=== PATIENT | female | born 1945 | race Caucasian/White ===

== ENCOUNTER 2020-07-18 06:57 | Emergency (ER) | payer OTHER ==
[~2020-07-18] VITALS: Ht 165.1 cm; Wt 58.1 kg
[2020-07-18] MEDS ORDERED: KETOROLAC TROMETHAMINE 30 MG/ML VIAL IV STA (07:03)
[2020-07-18] MEDS ORDERED: ONDANSETRON HCL INJ 2MG/ML 2ML 2 MG/ML VIAL IV STA (07:03)
[2020-07-18] MEDS ORDERED: PIPERACILLIN/TAZO 4.5 GM 100 ML IV STA (07:03)
[2020-07-18] MEDS ORDERED: SODIUM CHLORIDE 0.9% 1000ML 1,000 ML IV STA (07:03)
--- NOTE | 2020-07-18 07:03 | Emergency Department Note ---
History of Present Illnes History of Present Illness History of Present Illness This is a 74 year old female presents to the ED for 5 day h/o of TRUJILLO with n/v. Denies cough, myalgias, and abd pain. Seen at bedside non-toxic appearing. Onset (how long ago): day(s) (5) Severity: moderate Onset quality: gradual Duration (how long): day(s) (5) Timing of current episode: constant Progression: worsening Chronicity: new Context: Denies recent illness, Denies recent surgery, Denies recent immobilization, Denies recent travel, Denies trauma/injury, Denies new medications, Denies hx of DVT/PE, Denies non-compliance w/ medications, Denies other Relieving factors: none Exacerbating factors: none Associated symptoms: Reports fever/chills, Reports headaches Treatments prior to arrival: none Past Medical/Family History Physician Review I have reviewed the patient's past medical and family history. Any updates have been documented here. Past Medical History Recent Fever: Yes Clinical Suspicion of Infectio: Yes New/Unexplained Change in Ment: No Social History Smoking Cessation: Never Smoker Alcohol Use: None Any Illegal Drug Use: No Review of Systems Review of Systems Constitutional: Reports fever EENTM: Reports no symptoms Cardiovascular: Reports no symptoms Respiratory: Reports no symptoms Gastrointestinal: Reports no symptoms Genitourinary: Reports no symptoms Musculoskeletal: Reports no symptoms Integumentary: Reports no symptoms Neurological: Reports headache Psychological: Reports no symptoms Endocrine: Reports no symptoms Hematological/Lymphatic: Reports no symptoms Physical Exam Related Data Allergies: Coded Allergies: No Known Allergies (Unverified , 07/18/20) Triage Vital Signs Vital Signs Date Time Temp Pulse Resp B/P (MAP) Pulse Ox O2 Delivery O2 Flow Rate FiO2 07/18/20 07:02 98.7 101 20 141/66 97 Room Air Vital signs reviewed: Yes Physical Exam CONSTITUTIONAL Constitutional: Present well-developed, Present well-nourished HENT HENT: Present normocephalic, Present atraumatic, Present oropharynx clear/moist, Present nose normal HENT L/R: Present left ext ear normal, Present right ext ear normal EYES Eyes: Reports PERRL, Reports conjunctivae normal NECK Neck: Present ROM normal PULMONARY Pulmonary: Present effort normal, Present breath sounds normal CARDIOVASCULAR Cardiovascular: Present heart sounds normal, Present tachycardia GASTROINTESTINAL Abdominal: Present soft, Present nontender, Present bowel sounds normal GENITOURINARY Genitourinary: Present exam deferred SKIN Skin: Present warm, Present dry MUSCULOSKELETAL Musculoskeletal: Present ROM normal NEUROLOGICAL Neurological: Present alert, Present oriented x 3, Present no gross motor or sensory deficits PSYCHOLOGICAL Psychological: Present mood/affect normal, Present judgement normal Results Laboratory Lab results reviewed: Yes Laboratory comments Laboratory Tests Test 07/18/20 07:58 07/18/20 07:10 White Blood Count 2.56 x10e3/uL (4.8-10.8) Red Blood Count 4.06 x10e6/uL (3.6-5.1) Hemoglobin 12.4 g/dL (12.0-16.0) Hematocrit 36.8 % (34.2-44.1) Mean Corpuscular Volume 90.6 fL (81-99) Mean Corpuscular Hemoglobin 30.5 pg (28-32) Mean Corpuscular Hemoglobin Concent 33.7 g/dL (31-35) Red Cell Distribution Width 13.6 % (11.7-14.4) Platelet Count 168 x10e3/uL (140-360) Neutrophils (%) (Auto) 49.1 % (38.7-80.0) Lymphocytes (%) (Auto) 35.2 % (18.0-39.1) Monocytes (%) (Auto) 14.5 % (4.4-11.3) Eosinophils (%) (Auto) 0.0 % (0.0-6.0) Basophils (%) (Auto) 0.0 % (0.0-1.0) Neutrophils # (Auto) 1.3 (2.1-6.9) Lymphocytes # (Auto) 0.9 (1.0-3.2) Monocytes # (Auto) 0.4 (0.2-0.8) Eosinophils # (Auto) 0.0 (0.0-0.4) Basophils # (Auto) 0.0 (0.0-0.1) Absolute Immature Granulocyte (auto 0.03 x10e3/uL (0-0.1) Urine Color Yellow (YELLOW) Urine Clarity Clear (CLEAR) Urine pH 7 (5 - 7) Urine Specific [place] 1.010 (1.010-1.025) Urine Protein Negative (NEGATIVE) Urine Glucose (UA) Negative (NEGATIVE) Urine Ketones Negative (NEGATIVE) Urine Blood Trace (NEGATIVE) Urine Nitrite Negative (NEGATIVE) Urine Bilirubin Negative (NEGATIVE) Urine Urobilinogen 0.2 mg/dL (0.2 - 1) Urine Leukocyte Esterase Negative (NEGATIVE) Urine RBC 0-5 /HPF (0-5) Urine WBC None /HPF (0-5) Urine Epithelial Cells Rare /LPF (NONE) Urine Bacteria Few /HPF (NONE) Sodium Level 140 mmol/L (136-145) Potassium Level 3.0 mmol/L (3.5-5.1) Chloride Level 103 mmol/L (98-107) Carbon Dioxide Level 26 mmol/L (22-29) Anion Gap 14.0 mmol/L (8-16) Blood Urea Nitrogen 6 mg/dL (7-26) Creatinine 0.67 mg/dL (0.57-1.11) Estimat Glomerular Filtration Rate > 60 ML/MIN (60-) BUN/Creatinine Ratio 9 (6-25) Glucose Level 95 mg/dL (74-118) Lactic Acid Level 1.1 mmol/L (0.5-2.0) Calcium Level 8.7 mg/dL (8.4-10.2) Total Bilirubin 0.4 mg/dL (0.2-1.2) Aspartate Amino Transf (AST/SGOT) 22 IU/L (5-34) Alanine Aminotransferase (ALT/SGPT) 19 IU/L (0-55) Alkaline Phosphatase 165 IU/L (40-150) Creatine Kinase 82 IU/L (29-168) Creatine Kinase MB 2.40 ng/mL (0-5.0) Troponin I 0.015 ng/mL (0-0.300) B-Type Natriuretic Peptide 50.6 pg/mL (0-100) Total Protein 6.0 g/dL (6.5-8.1) Albumin 3.7 g/dL (3.5-5.0) Globulin 2.3 g/dL (2.3-3.5) Albumin/Globulin Ratio 1.6 (0.8-2.0) Lipase 22 U/L (8-78) Imaging Imaging results reviewed: Yes Impressions [place] [id number] Patient Name: IRWIN CHOUDHURY MR #: [id number] : 1945 Age/Sex: 74/F Req #: [id number] Adm Physician: Ordered by: KYLIE KIRKLAND DO Report #: [id number] Location: ER Room/Bed: Procedure: [id number] DX/CHEST SINGLE (PORTABLE) Exam Date: 07/18/20 Exam Time: 728 REPORT STATUS: Signed TECHNIQUE: Frontal view of the chest. INDICATION: ^Y ^ERMD ORDER ^[id number] ^0729 ^Y COMPARISON: None IMPRESSION: Lines and hardware: None. Heart and mediastinum: Calcific aorta. Otherwise, unremarkable. Lungs and pleura: Left middle and lower lung zone patchy airspace opacities. No pleural effusion. No pneumothorax. Soft tissues and bones: No acute abnormality. Signed by: Brannon Jacobs MD on 07/18/2020 8:26 AM Dictated By: BRANNON JACOBS DO 5 Transcribed By: MICHAEL on 07/18/20825 COPY TO: KYLIE KIRKLAND DO~ [place] [id number] Patient Name: IRWIN CHOUDHURY MR #: [id number] : 1945 Age/Sex: 74/F Req #: [id number] Adm Physician: Ordered by: KYLIE KIRKLAND DO Report #: [id number] Location: ER Room/Bed: Procedure: [id number] DX/CHEST SINGLE (PORTABLE) Exam Date: 07/18/20 Exam Time: 728 REPORT STATUS: Signed TECHNIQUE: Frontal view of the chest. INDICATION: ^Y ^ERMD ORDER ^[id number] ^0729 ^Y COMPARISON: None IMPRESSION: Lines and hardware: None. Heart and mediastinum: Calcific aorta. Otherwise, unremarkable. Lungs and pleura: Left middle and lower lung zone patchy airspace opacities. No pleural effusion. No pneumothorax. Soft tissues and bones: No acute abnormality. Signed by: Brannon Jacobs MD on 07/18/2020 8:26 AM Dictated By: BRANNON JACOBS DO 5 Transcribed By: MICHAEL on 07/18/20825 COPY TO: KYLIE KIRKLAND DO~ Procedures 12 Lead ECG Interpretation ECG Interpretation : ECG: ECG 1 Date: Jul 18, 2020 Time: 07:45 Prior ECG tracings: reviewed Rhythm: sinus rhythm Rate: normal BPM: 85 QRS axis: normal ST segments normal: Yes T waves normal: Yes Q waves: V1, V2 Clinical Impression: non-specific ECG Assessment & Plan Medical Decision Making MDM Diff Dx : sepsis, meningitis, COVID-19 infection, UTI, PNA, ACS Assessment & Plan Final Impression: (1) Hypokalemia (2) Viral syndrome KYLIE KIRKLAND DO Jul 18, 2020 07:03
[2020-07-18 07:25] LABS: HEMATOCRIT 36.8 % (34.2-44.1); HEMOGLOBIN 12.4 g/dL (12.0-16.0); LYMPHOCYTES # (AUTO) 0.9 (1.0-3.2); LYMPHOCYTES % 35.2 % (18.0-39.1); MEAN CORPUSCULAR HEMOGLOBIN 30.5 pg (28-32); MEAN CORPUSCULAR HGB CONC 33.7 g/dL (31-35); MEAN CORPUSCULAR VOLUME 90.6 fL (81-99); MONOCYTES # (AUTO) 0.4 (0.2-0.8); MONOCYTES % 14.5 % (4.4-11.3); NEUTROPHILS # (AUTO) 1.3 (2.1-6.9); NEUTROPHILS % 49.1 % (38.7-80.0); PLATELET COUNT 168 x10e3/uL (140-360); RED BLOOD COUNT 4.06 x10e6/uL (3.6-5.1); RED CELL DISTRIBUTION WIDTH 13.6 % (11.7-14.4)
[2020-07-18 07:29] LABS: COLOR,URINE YELLOW (YELLOW)
[2020-07-18 07:30] LABS: BILIRUBIN,URINE NEGATIVE (NEGATIVE); CLARITY,URINE CLEAR (CLEAR); KETONES,URINE NEGATIVE (NEGATIVE); LEUKOCYTE ESTERASE ,URINE NEGATIVE (NEGATIVE); NITRITE,URINE NEGATIVE (NEGATIVE); PROTEIN,URINE DIPSTICK NEGATIVE (NEGATIVE); URINE UROBILINOGEN 0.2 mg/dL (0.2 - 1)
[2020-07-18 07:48] LABS: ALANINE AMINOTRANSFERASE 19 IU/L (0-55); ALBUMIN 3.7 g/dL (3.5-5.0); ALBUMIN/GLOBULIN RATIO 1.6 (0.8-2.0); ALKALINE PHOSPHATASE 165 IU/L (40-150); BLOOD UREA NITROGEN 6 mg/dL (7-26); BUN/CREATININE RATIO 9 (6-25); CALCIUM 8.7 mg/dL (8.4-10.2); CARBON DIOXIDE 26 mmol/L (22-29); CHLORIDE 103 mmol/L (98-107); CREATINE KINASE 82 IU/L (29-168); CREATININE, SERUM 0.67 mg/dL (0.57-1.11); EST GLOMERULAR FILTRATION RATE > 60 ML/MIN (60-); GLUCOSE 95 mg/dL (74-118); LIPASE 22 U/L (8-78); SODIUM 140 mmol/L (136-145)
[2020-07-18 07:51] LABS: B-TYPE NATRIURETIC PEPTIDE2 50.6 pg/mL (0-100)
--- NOTE | 2020-07-18 07:56 | Diagnostic Imaging Report ---
Examination: CT head without contrast Clinical Indication: Headache. Technique: Transaxial noncontrast images from the skull base through the vertex were obtained. Sagittal and coronal reformatted images were done. Dose modulation, iterative reconstruction, and/or weight based adjustment of the mA/kV was utilized to reduce the radiation dose to as low as reasonably achievable. Comparison: None. Findings: Scalp: No abnormalities. Bones: Intact. No fractures. No blastic or lytic lesions. Brain sulci: Appropriate for patient's age. Ventricles: Normal in size and configuration. No hydrocephalus. . Extra-axial space: No abnormalities. Parenchyma: There are patchy areas of low-attenuation within subcortical and periventricular white matter, nonspecific, but could represent microvascular ischemic disease. No masses, hemorrhage, or acute or chronic cortical based vascular insults. Suprasellar region: No abnormalities. Craniocervical junction: The foramen magnum is patent. No Chiari one malformation. Impression: 1. No acute intracranial finding. 2. Mild chronic microvascular ischemic change. Signed by: Dr. Bev Castellano M.D. on 07/18/2020 7:53 AM
[2020-07-18 08:03] LABS: BACTERIA,URINE FEW /HPF; EPITHELIAL CELLS,URINE RARE /LPF; RBC,URINE 0-5 /HPF (0-5)
[2020-07-18] MEDS ORDERED: POTASSIUM CHLORIDE 20 MEQ TAB CR PO STA (08:09)
--- NOTE | 2020-07-18 08:29 | Diagnostic Imaging Report ---
TECHNIQUE: Frontal view of the chest. INDICATION: ^Y ^ERMD ORDER ^[id number] ^0729 ^Y COMPARISON: None IMPRESSION: Lines and hardware: None. Heart and mediastinum: Calcific aorta. Otherwise, unremarkable. Lungs and pleura: Left middle and lower lung zone patchy airspace opacities. No pleural effusion. No pneumothorax. Soft tissues and bones: No acute abnormality. Signed by: Brannon Jacobs MD on 07/18/2020 8:26 AM
--- OUTSIDE RECORDS SUMMARY | 2020-07-18 09:36 | XMS REPORT | Continuity of Care Document ---
Author Author [facility] Organization [facility] Address [address] [place] [address] Phone Unavailable Care Team Providers Care Inventory Clerk Name Role Phone NOEMY, DO MICHAUD PCP KYLIE KIRKLAND Unavailable Payers Payer Name Policy Type Policy Number Effective Date Expiration Date Sadiq Singer Ppo [id number] 2014 00:00:00 [facility] Problems Condition Name Condition Details Condition Category Status Onset Date Resolution Date Last Treatment Date Treating Clinician Comments Source Hypokalemia Problem Active [facility] Allergies, Adverse Reactions, Alerts Allergy Name Allergy Type Status Severity Reaction(s) Onset Date Inacti ve Date Treating Clinician Comments Source No Known Allergies DA Active U 2020-02-01 00:00:00 [facility] Social History Social Habit Start Date Stop Date Quantity Comments Source Sex Assigned At 1945 00:00:00 1945 00:00:00 Female [facility] Medications This patient has no known medications. Vital Signs Vital Name Observation Time Observation Value Comments Source Weight 2020-07-18 07:02:00 128 [lb_av] [facility] BMI (Body Mass Index) 2020-07-18 07:02:00 21.3 kg/m2 [facility] Procedures Procedure Date / Time Performed Performing Clinician Sourc e Computed tomography of brain without radiopaque contrast 2020-06 00:00:00 [facility] Plan of Care Planned Activity Planned Date Details Comments Source Instructions Hypokalemia [facility] Instructions Viral Syndrome - Adult [facility] Encounters Start Date/Time End Date/Time Encounter Type Admission Type [facility] Facility Care Department Encounter ID Source 2020-07-18 07:22:00 2020-07-18 09:00:00 Departed Emergency Room 1 KYLIE KIRKLAND [facility] [id number] [facility] Results Test Description Test Time Test Comments Results Result Comments Source CHEST SINGLE (PORTABLE) 2020-07-18 08:25:00 [facility] 1945 Sex: F [place] [address] Patient Name: IRWIN CHOUDHURY MR #: [id number] : 1945 Age/Sex: 74/F Req #: [id number] Adm Physician: Ordered by: KYLIE KIRKLAND DO Report #: [id number] Location: ER Room/Bed: Procedure: [id number] DX/CHEST SINGLE (PORTABLE) Exam Date: 07/18/20 Exam Time: 728 REPORT STATUS: Signed TECHNIQUE: Frontal view of the chest. INDICATION: Y ERMD ORDER [id number] Y COMPARISON: None IMPRESSION: Lines and hardware: None. Heart and mediastinum: Calcific aorta. Otherwise, unremarkable. Lungs and pleura: Left middle and lower lung zone patchy airspace opacities. No pleural effusion. No pneumothorax. Soft tissues and bones: No acute abnormality. Signed by: Brannon Jacobs MD on 07/18/2020 8:26 AM Dictated By: BRANNON JACOBS DO 5 Transcribed By: MICHAEL on 07/18/20825 COPY TO: KYLIE KIRKLAND DO CT BRAIN WO 2020-07-18 07:52:00 [facility] : 1945 Sex: F [place] [address] Patient Name: IRWIN CHOUDHURY MR #: [id number] : 1945 Age/Sex: 74/F Req #: [id number] [facility] Physician: Ordered by: KYLIE KIRKLAND DO Report #: [id number] Location: Room/Bed: Procedure: [id number] CT/CT BRAIN WO Exam Date: 07/18/20 Exam Time: 719 REPORT STATUS: Signed Examination: CT head without contrast Clinical Indication: Headache. Technique: Transaxial noncontrast images from the skull base through the vertex were obtained. Sagittal and coronal reformatted images were done. Dose modulation, iterative reconstruction, and/or weight based adjustment of the mA/kV was utilized to reduce the radiation dose to as low as reasonably achievable. Comparison: None. Findings: Scalp: No abnormalities. Bones: Intact. No fractures. No blastic or lytic lesions. Brain sulci: Appropriate for patient's age. Ventricles: Normal in size and configuration. No hydrocephalus. . Extra- axial space: No abnormalities. Parenchyma: There are patchy areas of low-attenuation within subcortical and periventricular white matter, nonspecific, but could represent microvascular ischemic disease. No masses, hemorrhage, or acute or chronic cortical based vascular insults. Suprasellar region: No abnormalities. Craniocervical junction: The foramen magnum is patent. No Chiari one malformation. Impression: 1. No acute intracranial finding. 2. Mild chronic microvascular ischemic change. Signed by: Dr. Bev Castellano M.D. on 07/18/2020 7:53 AM Dictated By: BEV ARRINGTON MD 2 Transcribed By: MICHAEL on 07/18/20752 COPY TO: KYLIE KIRKLAND DO Blood leukocytes automated count (number/volume) 2020-07-18 07:10:00 Test Item White Blood Count (test code = 6690-2) 2.56 4.8-10.8 [facility] erythrocytes automated count (number/volume)2020-07-18 07:10:00* Test Item Value Reference Range Interpretation Comments Red Blood Count (test code = 789-8) 4.06 3.6-5.1 [facility] hemoglobin measurement (moles/volume)2020-07-18 07:10:00* Test Item Value Reference Range Interpretation Comments Hemoglobin (test code = 20803-1) 12.4 12.0-16.0 [facility] TaylorAutomated blood hematocrit (volume fraction)2020-07-18 07:10:00* Test Item Value Reference Range Interpretation Comments Hematocrit (test code = 4544-3) 36.8 34.2-44.1 [facility] TaylorAutomated erythrocyte mean corpuscular rptoka6478-98-46 07:10:00* Test Item Value Reference Range Interpretation Comments Mean Corpuscular Volume (test code = 787-2) 90.6 81-99 [facility] TaylorAutom[facility] erythrocyte mean corpuscular hemoglobin (mass per erythrocyte)2020-07-18 07:10:00* Test Item Value Reference Range Interpretation Comments Mean Corpuscular Hemoglobin (test code = 785-6) 30.5 28-32 [facility] erythrocyte mean corpuscular hemoglobin concentration measurement (mass/volume)2020-07-18 07:10:00* Test Item Value Reference Range Interpretation Comments Mean Corpuscular Hemoglobin Concent (test code = 786-4) 33.7 31-35 [facility] TaylorRDW VmgWj-[id number] 07:10:00* Test Item Value Reference Range Interpretation Comments Red Cell Distribution Width (test code = 85026-2) 13.6 11.7 -14.4 [facility] platelet count (count/volume)2020-07-18 07:10:00* Test Item Value Reference Range Interpretation Comments Platelet Count (test code = 777-3) 168 140-360 [facility] TaylorAutcarolin[facility] blood segmented neutrophil count as percentage of total pmexlrcosn2607-01-22 07:10:00* Test Item Value Reference Range Interpretation Comments Neutrophils (%) (Auto) (test code = 01475-9) 49.1 38.7-80.0 [facility] blood lymphocyte count as percentage ot total rqmzprvoto1887-77-53 07:10:00* Test Item Value Reference Range Interpretation Comments Lymphocytes (%) (Auto) (test code = 736-9) 35.2 18.0-39.1 [facility] TaylorAutomated blood monocyte count as percentage of total jwbmvkhsyy5431-92-99 07:10:00* Test Item Value Reference Range Interpretation Comments Monocytes (%) (Auto) (test code = 5905-5) 14.5 4.4-11.3 [facility] TaylorAutomated blood eosinophil count as percentage of total rgqlkljoif0908-60-49 07:10:00* Test Item Value Reference Range Interpretation Comments Eosinophils (%) (Auto) (test code = 713-8) 0.0 0.0-6.0 [facility] TaylorAutomated blood basophil count as percentage of total akejqahngg3971-68-91 07:10:00* Test Item Value Reference Range Interpretation Comments Basophils (%) (Auto) (test code = 706-2) 0.0 0.0-1.0 [facility] TaylorFluoroscopic procedure less than one hour smjehazs9963-12-36 07:10:00* Test Item Value Reference Range Interpretation Comments IM GRANULOCYTES % (test code = IM GRANULOCYTES %) 1.2 0.0- 1.0 [facility] Taylor[facility]ated blood neutrophil count 2020-07-18 07:10:00* Test Item Value Reference Range Interpretation Comments Neutrophils # (Auto) (test code = 751-8) 1.3 2.1-6.9 [facility] TaylorBlood lymphocytes count (number/volume) 2020-07-18 07:10:00* Test Item Value Reference Range Interpretation Comments Lymphocytes # (Auto) (test code = 96222-2) 0.9 1.0-3.2 [facility] TaylorBlood monocytes automated count (number/volume)2020-07-18 07:10:00* Test Item Value Reference Range Interpretation Comments Monocytes # (Auto) (test code = 742-7) 0.4 0.2-0.8 [facility] TaylorAutomated blood eosinophil count 2020-07-18 07:10:00* Test Item Value Reference Range Interpretation Comments Eosinophils # (Auto) (test code = 711-2) 0.0 0.0-0.4 [facility] TaylorAutomated blood basophil count (count/volume)2020-07-18 07:10:00* Test Item Value Reference Range Interpretation Comments Basophils # (Auto) (test code = 704-7) 0.0 0.0-0.1 [facility] TaylorFluoroscopic procedure less than one hour lwzftspc0864-34-06 07:10:00* Test Item Value Reference Range Interpretation Comments Absolute Immature Granulocyte (auto ([place] t code = Absolute Immature Granulocyte (auto) 0.03 0-0.1 [facility] TaylorUrine color cobrlebawslyc2581-04-80 07:10:00* Test Item Value Reference Range Interpretation Comments Urine Color (test code = 5778-6) YELLOW YELLOW [facility] TaylorUrine kedvsze7040-17-24 07:10:00* Test Item Value Reference Range Interpretation Comments Urine Clarity (test code = 26930-2) CLEAR CLEAR [facility]pecific gravity of Urine by Test strip 2020-07-18 07:10:00* Test Item Value Reference Range Interpretation Comments Urine Specific [place] (test code = 5811-5) 1.010 1.010-1.02 5 [facility] TaylorUrine pH measurement by automated test pvxqe1084-18-00 07:10:00* Test Item Value Reference Range Interpretation Comments Urine pH (test code = 48040-3) 7 5-7 [facility] TaylorUrine leukocyte esterase detection by kfpfmskx5936-74-94 07:10:00* Test Item Value Reference Range Interpretation Comments Urine Leukocyte Esterase (test code = 5799-2) NEGATIVE NEGATIVE [facility] TaylorUrine nitrite zkfhzmvcd7580-03-66 07:10:00* Test Item Value Reference Range Interpretation Comments Urine Nitrite (test code = 87379-3) NEGATIVE NEGATIVE [facility] TaylorUrine protein measurement by test strip (mass/volume)2020-07-18 07:10:00* Test Item Value Reference Range Interpretation Comments Urine Protein (test code = 5804-0) NEGATIVE NEGATIVE [facility] TaylorUrine glucose zkfwtkcug8364-50-18 07:10:00* Test Item Value Reference Range Interpretation Comments Urine Glucose (UA) (test code = 2349-9) NEGATIVE NEGATIVE [facility] TaylorUrine ketones detection by automated test feevh1209-54-26 07:10:00* Test Item Value Reference Range Interpretation Comments Urine Ketones (test code = 88651-2) NEGATIVE NEGATIVE [facility] TaylorUrine urobilinogen measurement by test strip (mass/volume)2020-07-18 07:10:00* Test Item Value Reference Range Interpretation Comments Urine Urobilinogen (test code = 12248-5) 0.2 0.2-1 [facility] TaylorUrine total bilirubin measurement (mass/volume)2020-07-18 07:10:00* Test Item Value Reference Range Interpretation Comments Urine Bilirubin (test code = 1978-6) NEGATIVE NEGATIVE [facility] TaylorUrine erythrocytes gbksznyth4302-51-64 07:10:00* Test Item Value Reference Range Interpretation Comments Urine Blood (test code = 90319-6) TRACE NEGATIVE [facility] TaylorAutomated urine sediment leukocyte count by microscopy (number/high power field)2020-07-18 07:10:00* Test Item Value Reference Range Interpretation Comments Urine WBC (test code = 5821-4) NONE 0-5 [facility] TaylorErythrocytes detection in urine sediment by light nghidyhrbu8839-61-97 07:10:00* Test Item Value Reference Range Interpretation Comments Urine RBC (test code = 00322-7) 0-5 0-5 [facility] TaylorBacteria detection in urine sediment by light dqkohweicx1155-64-41 07:10:00* Test Item Value Reference Range Interpretation Comments Urine Bacteria (test code = 60106-6) FEW NONE [facility] TaylorEpithelial cells detection in urine sediment by light wiqaffadqr8508-03-73 07:10:00* Test Item Value Reference Range Interpretation Comments Urine Epithelial Cells (test code = 20804-8) RARE NONE [facility] Hospitalerum or plasma sodium measurement (moles/volume)2020-07-18 07:10:00* Test Item Value Reference Range Interpretation Comments Sodium Level (test code = 2951-2) 140 136-145 [facility] Hospitalerum or plasma potassium measurement (moles/volume)2020-07-18 07:10:00* Test Item Value Reference Range Interpretation Comments Potassium Level (test code = 2823-3) 3.0 3.5-5.1 [facility] Hospitalerum or plasma chloride measurement (moles/volume)2020-07-18 07:10:00* Test Item Value Reference Range Interpretation Comments Chloride Level (test code = 2075-0) 103 98-107 [facility] Hospitalerum or plasma carbon dioxide, total measurement (moles/volume)2020-07-18 07:10:00* Test Item Value Reference Range Interpretation Comments Carbon Dioxide Level (test code = 2028-9) 26 22-29 [facility] Hospitalerum or plasma anion jmg8529-04-46 07:10:00* Test Item Value Reference Range Interpretation Comments Anion Gap (test code = 67613-2) 14.0 8-16 [facility] Hospitalerum or plasma urea nitrogen measurement (mass/volume)2020-07-18 07:10:00* Test Item Value Reference Range Interpretation Comments Blood Urea Nitrogen (test code = 3094-0) 6 7-26 [facility] Hospitalerum or plasma creatinine measurement (mass/volume)2020-07-18 07:10:00* Test Item Value Reference Range Interpretation Comments Creatinine (test code = 2160-0) 0.67 0.57-1.11 [facility] Hospitalerum or plasma urea nitrogen/creatinine mass vzrsp6450-00-33 07:10:00* Test Item Value Reference Range Interpretation Comments BUN/Creatinine Ratio (test code = 3097-3) 9 6-25 [facility] TaylorEstimated glomerular filtration rate (GFR) jtmywfbxdntoh7951-00-06 07:10:00* Test Item Value Reference Range Interpretation Comments Estimat Glomerular Filtration Rate (test code = 775856959) > 60 >60 Ranges were taken from the National Kidney Disease Education Program and the [facility] [employer] literature.Reference ranges:60 or greater: Lacocc87-60 ( for 3 consecutive months): Chronic kidney disease 15 or less: Kidney failureBaylor Scott & White Medical Center – TaylorGlucose ggltxeemvtz7541-65-46 07:10:00* Test Item Value Reference Range Interpretation Comments Glucose Level (test code = YEE1804) 95 74-118 [facility] Hospitalerum or plasma calcium measurement (mass/volume)2020-07-18 07:10:00* Test Item Value Reference Range Interpretation Comments Calcium Level (test code = 20823-0) 8.7 8.4-10.2 [facility] TaylorFluoroscopic procedure less than one hour matkvxkm0125-85-21 07:10:00* Test Item Value Reference Range Interpretation Comments Lactic Acid Level (test code = Lactic Acid Level) 1.1 0.5- 2.0 [facility] Hospitalerum or plasma total bilirubin measurement (mass/volume)2020-07-18 07:10:00* Test Item Value Reference Range Interpretation Comments Total Bilirubin (test code = 1975-2) 0.4 0.2-1.2 [facility] TaylorFluoroscopic procedure less than one hour wrpqochr6472-52-75 07:10:00* Test Item Value Reference Range Interpretation Comments Aspartate Amino Transf (AST/SGOT) (test code = Aspartate Amino Transf (AST/SGOT)) 22 5-34 [facility] Hospitalerum or plasma alanine aminotransferase measurement (enzymatic activity/volume)2020-07-18 07:10:00* Test Item Value Reference Range Interpretation Comments Alanine Aminotransferase (ALT/SGPT) (test code = 1742-6) 19 0-55 [facility] Hospitalerum or plasma protein measurement (mass/volume)2020-07-18 07:10:00* Test Item Value Reference Range Interpretation Comments Total Protein (test code = 2885-2) 6.0 6.5-8.1 [facility] Hospitalerum or plasma albumin measurement (mass/volume)2020-07-18 07:10:00* Test Item Value Reference Range Interpretation Comments Albumin (test code = 1751-7) 3.7 3.5-5.0 [facility] TaylorPlasma globulin measurement (mass/volume) 2020-07-18 07:10:00* Test Item Value Reference Range Interpretation Comments Globulin (test code = 18740-6) 2.3 2.3-3.5 [facility] Hospitalerum or plasma albumin/globulin mass efede8128-19-32 07:10:00* Test Item Value Reference Range Interpretation Comments Albumin/Globulin Ratio (test code = 1759-0) 1.6 0.8-2.0 [facility] Hospitalerum or plasma alkaline phosphatase measurement (enzymatic activity/volume)2020-07-18 07:10:00* Test Item Value Reference Range Interpretation Comments Alkaline Phosphatase (test code = 6768-6) 165 40-150 [facility] TaylorBNP Jus-dVfr1387-47-20 07:10:00* Test Item Value Reference Range Interpretation Comments B-Type Natriuretic Peptide (test code = 12182-9) 50.6 0-100 [facility] Hospitalerum or plasma creatine kinase measurement (enzymatic activity/volume)2020-07-18 07:10:00* Test Item Value Reference Range Interpretation Comments Creatine Kinase (test code = 2157-6) 82 29-168 [facility] Hospitalerum or plasma creatine kinase MB measurement (mass/volume)2020-07-18 07:10:00* Test Item Value Reference Range Interpretation Comments Creatine Kinase MB (test code = 56302-8) 2.40 0-5.0 [facility] TaylorTroponin I measurement by highly sensitive enzyme xqgsihmwxve6876-31-92 07:10:00* Test Item Value Reference Range Interpretation Comments Troponin I (test code = 92062-1) 0.015 0-0.300 [facility] Hospitalerum or plasma lipase measurement (enzymatic activity/volume)2020-07-18 07:10:00* Test Item Value Reference Range Interpretation Comments Lipase (test code = 3040-3) 22 8-78 [facility] TaylorCBC W/AUTO [id number] 14:43:00* Test Item Value Reference Range Interpretation Comments WHITE BLOOD CELL (test code = WBC) 5.30 x10 3/uL 4.5-11.0 N RED BLOOD CELL (test code = RBC) 3.09 x10 6/uL 3.54-5.02 L HEMOGLOBIN (test code = HGB) 10.1 g/dL 11.0-15.0 L HEMATOCRIT (test code = HCT) 31.4 % 33.0-45.0 L MEAN CELL VOLUME (test code = MCV) 101.6 fL 81.0-99.0 H MEAN CELL HGB (test code = MCH) 32.7 pg 27.0-33.0 N MEAN CELL HGB CONCETRATION (test code = MCHC) 32.2 g/dL 33.0-37. 0 L RED CELL DISTRIBUTION WIDTH CV (test code = RDW) 14.6 % 11.5- 14.5 H RED CELL DISTRIBUTION WIDTH SD (test code = RDW-SD) 53.4 fL 37 .0-54.0 N PLATELET COUNT (test code = PLT) 137 x10 3/uL 150-400 L MEAN PLATELET VOLUME (test code = MPV) 9.0 fL 7.0-9.0 N NEUTROPHIL % (test code = NT%) 19.4 % 56.0-77.0 L IMMATURE GRANULOCYTE % (test code = IG%) 1.3 % 0.0-2.0 N LYMPHOCYTE % (test code = LY%) 77.5 % 14.0-32.0 H MONOCYTE % (test code = MO%) 0.8 % 4.8-9.0 L EOSINOPHIL % (test code = EO%) 0.8 % 0.3-3.7 N BASOPHIL % (test code = BA%) 0.2 % 0.0-2.0 N NUCLEATED RBC % (test code = NRBC%) 0.0 % 0-0 N NEUTROPHIL # (test code = NT#) 1.03 x10 3/uL 2.0-7.6 L IMMATURE GRANULOCYTE # (test code = IG#) 0.07 x10 3/uL 0.00-0.03 H LYMPHOCYTE # (test code = LY#) 4.11 x10 3/uL 1.0-3.8 H MONOCYTE # (test code = MO#) 0.04 x10 3/uL 0.1-0.8 L EOSINOPHIL # (test code = EO#) 0.04 x10 3/uL 0.0-0.2 N BASOPHIL # (test code = BA#) 0.01 x10 3/uL 0.0-0.2 N NUCLEATED RBC # (test code = NRBC#) 0.00 x10 3/uL 0.0-0.1 N MANUAL DIFF REQUIRED (test code = MDIFF) NO SLIDE REVIEWED, CONSISTENT WITH AUTO DIFF. COMPREHENSIVE METABOLIC [id number] 09:07:00* Test Item Value Reference Range Interpretation Comments SODIUM (test code = NA) 141 mEq/L 134-147 N POTASSIUM (test code = K) 4.1 mEq/L 3.4-5.0 N CHLORIDE (test code = CL) 107 mEq/L 100-108 N CARBON DIOXIDE (test code = CO2) 27 mEq/L 21-33 N ANION GAP (test code = GAP) 11 0-20 N GLUCOSE (test code = GLU) 79 mg/dL 70-110 N BLOOD UREA NITROGEN (test code = BUN) 7 mg/dL 7-18 N GLOMERULAR FILTRATION RATE (test code = GFR) 98.0 70-80 H Units of measure = ml/min/1.73 m2 CREATININE (test code = CREAT) 0.6 mg/dL 0.6-1.3 N TOTAL PROTEIN (test code = PROT) 5.7 g/dL 6.4-8.2 L ALBUMIN (test code = ALB) 3.10 g/dL 3.4-5.0 L CALCIUM (test code = CA) 8.5 mg/dL 8.0-10.5 N BILIRUBIN TOTAL (test code = BILT) 0.4 MG/DL <1.5 SGOT/AST (test code = AST) 12 IUnit/L 15-37 L SGPT/ALT (test code = ALT) 19 IUnit/L 15-65 N ALKALINE PHOSPHATASE TOTAL (test code = ALKP) 107 IUnit/L 20-125 N GTCDQXQJMDF1111-07-13 09:07:00* Test Item Value Reference Range Interpretation Comments PHOSPHOROUS (test code = PHOS) 3.3 MG/DL 2.5-4.9 N URIC [id number] 09:07:00* Test Item Value Reference Range Interpretation Comments URIC ACID (test code = URIC) 3.3 mg/dL 2.6-7.2 N LACTIC DEHYDROGENASE(LDH)2020-02-02 09:07:00* Test Item Value Reference Range Interpretation Comments LACTIC DEHYDROGENASE(LDH) (test code = LDH) 177 IUnits/L 84-246 N [id number] 09:07:00* Test Item Value Reference Range Interpretation Comments MAGNESIUM (test code = MAG) 2.60 mg/dL 1.8-2.4 H CBC W/AUTO [id number] 08:11:00* Test Item Value Reference Range Interpretation Comments WHITE BLOOD CELL (test code = WBC) 5.30 x10 3/uL 4.5-11.0 N RED BLOOD CELL (test code = RBC) 3.09 x10 6/uL 3.54-5.02 L HEMOGLOBIN (test code = HGB) 10.1 g/dL 11.0-15.0 L HEMATOCRIT (test code = HCT) 31.4 % 33.0-45.0 L MEAN CELL VOLUME (test code = MCV) 101.6 fL 81.0-99.0 H MEAN CELL HGB (test code = MCH) 32.7 pg 27.0-33.0 N MEAN CELL HGB CONCETRATION (test code = MCHC) 32.2 g/dL 33.0-37. 0 L RED CELL DISTRIBUTION WIDTH CV (test code = RDW) 14.6 % 11.5- 14.5 H RED CELL DISTRIBUTION WIDTH SD (test code = RDW-SD) 53.4 fL 37 .0-54.0 N PLATELET COUNT (test code = PLT) 137 x10 3/uL 150-400 L MEAN PLATELET VOLUME (test code = MPV) 9.0 fL 7.0-9.0 N NEUTROPHIL % (test code = NT%) % 56.0-77.0 LYMPHOCYTE % (test code = LY%) % 14.0-32.0 NEUTROPHIL # (test code = NT#) x10 3/uL 2.0-7.6 LYMPHOCYTE # (test code = LY#) x10 3/uL 1.0-3.8 MANUAL DIFF REQUIRED (test code = MDIFF) COMPREHENSIVE METABOLIC [id number] 23:39:00* Test Item Value Reference Range Interpretation Comments SODIUM (test code = NA) 135 mEq/L 134-147 N POTASSIUM (test code = K) 3.7 mEq/L 3.4-5.0 N CHLORIDE (test code = CL) 103 mEq/L 100-108 N CARBON DIOXIDE (test code = CO2) 28 mEq/L 21-33 N ANION GAP (test code = GAP) 8 0-20 N GLUCOSE (test code = GLU) 92 mg/dL 70-110 N BLOOD UREA NITROGEN (test code = BUN) 7 mg/dL 7-18 N GLOMERULAR FILTRATION RATE (test code = GFR) 120.9 70-80 H Units of measure = ml/min/1.73 m2 CREATININE (test code = CREAT) 0.5 mg/dL 0.6-1.3 L TOTAL PROTEIN (test code = PROT) 5.5 g/dL 6.4-8.2 L ALBUMIN (test code = ALB) 2.90 g/dL 3.4-5.0 L CALCIUM (test code = CA) 8.1 mg/dL 8.0-10.5 N BILIRUBIN TOTAL (test code = BILT) 0.3 MG/DL <1.5 N SGOT/AST (test code = AST) 13 IUnit/L 15-37 L SGPT/ALT (test code = ALT) 19 IUnit/L 15-65 N ALKALINE PHOSPHATASE TOTAL (test code = ALKP) 100 IUnit/L 20-125 N COMMENTS: [id number] 23:39:00* Test Item Value Reference Range Interpretation Comments PHOSPHOROUS (test code = PHOS) 3.0 MG/DL 2.5-4.9 N COMMENTS: NAURIC [id number] 23:39:00* Test Item Value Reference Range Interpretation Comments URIC ACID (test code = URIC) 2.8 mg/dL 2.6-7.2 N COMMENTS: NALACTIC DEHYDROGENASE(LDH)2020-02-01 23:39:00* Test Item Value Reference Range Interpretation Comments LACTIC DEHYDROGENASE(LDH) (test code = LDH) 160 IUnits/L 84-246 N COMMENTS: [id number] 23:39:00* Test Item Value Reference Range Interpretation Comments MAGNESIUM (test code = MAG) 2.30 mg/dL 1.8-2.4 N COMMENTS: NACBC W/AUTO [id number] 23:38:00* Test Item Value Reference Range Interpretation Comments WHITE BLOOD CELL (test code = WBC) 5.66 x10 3/uL 4.5-11.0 N RED BLOOD CELL (test code = RBC) 2.80 x10 6/uL 3.54-5.02 L HEMOGLOBIN (test code = HGB) 9.3 g/dL 11.0-15.0 L HEMATOCRIT (test code = HCT) 28.4 % 33.0-45.0 L MEAN CELL VOLUME (test code = MCV) 101.4 fL 81.0-99.0 H MEAN CELL HGB (test code = MCH) 33.2 pg 27.0-33.0 H MEAN CELL HGB CONCETRATION (test code = MCHC) 32.7 g/dL 33.0-37. 0 L RED CELL DISTRIBUTION WIDTH CV (test code = RDW) 14.3 % 11.5- 14.5 N RED CELL DISTRIBUTION WIDTH SD (test code = RDW-SD) 53.2 fL 37 .0-54.0 N PLATELET COUNT (test code = PLT) 130 x10 3/uL 150-400 L MEAN PLATELET VOLUME (test code = MPV) 8.5 fL 7.0-9.0 N NEUTROPHIL % (test code = NT%) 21.0 % 56.0-77.0 L IMMATURE GRANULOCYTE % (test code = IG%) 1.1 % 0.0-2.0 N LYMPHOCYTE % (test code = LY%) 75.4 % 14.0-32.0 H MONOCYTE % (test code = MO%) 1.2 % 4.8-9.0 L EOSINOPHIL % (test code = EO%) 0.9 % 0.3-3.7 N BASOPHIL % (test code = BA%) 0.4 % 0.0-2.0 N NUCLEATED RBC % (test code = NRBC%) 0.0 % 0-0 N NEUTROPHIL # (test code = NT#) 1.19 x10 3/uL 2.0-7.6 L IMMATURE GRANULOCYTE # (test code = IG#) 0.06 x10 3/uL 0.00-0.03 H LYMPHOCYTE # (test code = LY#) 4.27 x10 3/uL 1.0-3.8 H MONOCYTE # (test code = MO#) 0.07 x10 3/uL 0.1-0.8 L EOSINOPHIL # (test code = EO#) 0.05 x10 3/uL 0.0-0.2 N BASOPHIL # (test code = BA#) 0.02 x10 3/uL 0.0-0.2 N NUCLEATED RBC # (test code = NRBC#) 0.00 x10 3/uL 0.0-0.1 N MANUAL DIFF REQUIRED (test code = MDIFF) NO SLIDE REVIEWED, CONSISTENT WITH AUTO DIFF. CBC W/AUTO [id number] 23:09:00* Test Item Value Reference Range Interpretation Comments WHITE BLOOD CELL (test code = WBC) 5.66 x10 3/uL 4.5-11.0 N RED BLOOD CELL (test code = RBC) 2.80 x10 6/uL 3.54-5.02 L HEMOGLOBIN (test code = HGB) 9.3 g/dL 11.0-15.0 L HEMATOCRIT (test code = HCT) 28.4 % 33.0-45.0 L MEAN CELL VOLUME (test code = MCV) 101.4 fL 81.0-99.0 H MEAN CELL HGB (test code = MCH) 33.2 pg 27.0-33.0 H MEAN CELL HGB CONCETRATION (test code = MCHC) 32.7 g/dL 33.0-37. 0 L RED CELL DISTRIBUTION WIDTH CV (test code = RDW) 14.3 % 11.5- 14.5 N RED CELL DISTRIBUTION WIDTH SD (test code = RDW-SD) 53.2 fL 37 .0-54.0 N PLATELET COUNT (test code = PLT) 130 x10 3/uL 150-400 L MEAN PLATELET VOLUME (test code = MPV) 8.5 fL 7.0-9.0 N NEUTROPHIL % (test code = NT%) % 56.0-77.0 LYMPHOCYTE % (test code = LY%) % 14.0-32.0 NEUTROPHIL # (test code = NT#) x10 3/uL 2.0-7.6 LYMPHOCYTE # (test code = LY#) x10 3/uL 1.0-3.8 MANUAL DIFF REQUIRED (test code = MDIFF)
== END 2020-07-18 09:00 | disposition home or self-care (01) ==
LOC: ER 07:22
DX: B34.9 Viral infection, unspecified (principal); E87.6 Hypokalemia; R51.9 Headache, unspecified; R11.2 Nausea with vomiting, unspecified
CPT/HCPCS: 36415; 70450; 71045; 80053; 81001; 82550; 82553; 83605; 83690; 83880; 84484; 85025; 87040; 93005; 99284; J1885; J2405; J2543; J7030; U0002

== ENCOUNTER 2020-07-24 17:36 | Inpatient (IN) | payer OTHER ==
[~2020-07-24] VITALS: Ht 165.1 cm; Wt 56.7 kg
[2020-07-24] MEDS ORDERED: MORPHINE SULFATE INJ 4 MG/ML INJ 1ML IV STA (18:06)
[2020-07-24] MEDS ORDERED: DEXAMETHASONE SOD PHOS 10 MG/1 ML VIAL IV ONE (18:15)
[2020-07-24] MEDS ORDERED: ACETAMINOPHEN 325 MG TAB PO ONE ×2 (18:15→20:00)
[2020-07-24] MEDS ORDERED: AZITHROMYCIN 500MG/NS 250 ML 250 ML IV SCH (18:15)
[2020-07-24] MEDS ORDERED: SODIUM CHLORIDE 0.9% 1000ML 1,000 ML IV STA (19:07)
[2020-07-24 19:19] LABS: HEMATOCRIT 32.1 % (34.2-44.1); LYMPHOCYTES # (AUTO) 0.4 (1.0-3.2); LYMPHOCYTES % 16.5 % (18.0-39.1); MEAN CORPUSCULAR HEMOGLOBIN 30.4 pg (28-32); MEAN CORPUSCULAR HGB CONC 34.3 g/dL (31-35); MEAN CORPUSCULAR VOLUME 88.7 fL (81-99); MONOCYTES # (AUTO) 0.3 (0.2-0.8); MONOCYTES % 10.5 % (4.4-11.3); NEUTROPHILS # (AUTO) 1.8 (2.1-6.9); NEUTROPHILS % 72.2 % (38.7-80.0); PLATELET COUNT 143 x10e3/uL (140-360); RED BLOOD COUNT 3.62 x10e6/uL (3.6-5.1); RED CELL DISTRIBUTION WIDTH 13.2 % (11.7-14.4)
[2020-07-24] MEDS: PIPER-TAZ 3.375 GM 50 ML IV SCH (19:26)
[2020-07-24 19:34] LABS: ALANINE AMINOTRANSFERASE 29 IU/L (0-55); ALBUMIN/GLOBULIN RATIO 1.2 (0.8-2.0); ALKALINE PHOSPHATASE 166 IU/L (40-150); BLOOD UREA NITROGEN 8 mg/dL (7-26); BUN/CREATININE RATIO 13 (6-25); CALCIUM 8.3 mg/dL (8.4-10.2); CARBON DIOXIDE 22 mmol/L (22-29); CHLORIDE 100 mmol/L (98-107); CREATININE, SERUM 0.62 mg/dL (0.57-1.11); EST GLOMERULAR FILTRATION RATE > 60 ML/MIN (60-); GLUCOSE 103 mg/dL (74-118); SODIUM 137 mmol/L (136-145)
[2020-07-24] MEDS ORDERED: ACETAMINOPHEN 325 MG TAB PO STA (19:46)
[2020-07-24] MEDS ORDERED: IOPAMIDOL 370 MG/ML 200 ML INFUS..BTL INJ ONE (20:00)
[2020-07-24] MEDS ORDERED: SODIUM CHLORIDE 0.9% 50ML 50 ML ONE (20:00)
[2020-07-24] MEDS ORDERED: SODIUM CHLORIDE 0.9% 1000ML 1,000 ML IV SCH (20:30)
[2020-07-24 21:02] LABS: CREATINE KINASE MB 1.4 ng/mL (0-4.3)
[2020-07-24] MEDS: ONDANSETRON HCL INJ 2MG/ML 2ML 2 MG/ML VIAL IV PRN (21:23)
[2020-07-24 21:55] VITALS: BP 112/54
[2020-07-24 21:57] VITALS: BP 112/54
[2020-07-24 22:00] VITALS: BP 112/54
[2020-07-24] MEDS ORDERED: VENCLEXTA100 MG PO (23:20)
[2020-07-24] MEDS ORDERED: RESTASIS1 EACH OP (23:20)
[2020-07-24] MEDS ORDERED: PREDNISONE20 MG PO (23:20)
[2020-07-24] MEDS ORDERED: METOPROLOL TART25 MG PO (23:20)
[2020-07-25] VITALS (8 sets, daily range): BP systolic 106–126; BP diastolic 51–68
[2020-07-25] MEDS: PIPER-TAZ 3.375 GM 50 ML IV SCH ×2 (01:18→09:15)
[2020-07-25] MEDS: MORPHINE SULFATE INJ 4 MG/ML INJ 1ML IV PRN ×2 (03:15→09:16)
[2020-07-25] MEDS: ONDANSETRON HCL INJ 2MG/ML 2ML 2 MG/ML VIAL IV PRN ×4 (03:15→21:57)
[2020-07-25] MEDS: ACETAMINOPHEN 325 MG TAB PO PRN ×2 (05:00→21:57)
[2020-07-25 05:59] LABS: HEMATOCRIT 33.2 % (34.2-44.1); HEMOGLOBIN 11.1 g/dL (12.0-16.0); LYMPHOCYTES # (AUTO) 0.9 (1.0-3.2); LYMPHOCYTES % 29.3 % (18.0-39.1); MEAN CORPUSCULAR HEMOGLOBIN 30.2 pg (28-32); MEAN CORPUSCULAR HGB CONC 33.4 g/dL (31-35); MEAN CORPUSCULAR VOLUME 90.2 fL (81-99); MONOCYTES # (AUTO) 0.4 (0.2-0.8); MONOCYTES % 11.8 % (4.4-11.3); NEUTROPHILS # (AUTO) 1.7 (2.1-6.9); NEUTROPHILS % 58.2 % (38.7-80.0); PLATELET COUNT 158 x10e3/uL (140-360); RED BLOOD COUNT 3.68 x10e6/uL (3.6-5.1); RED CELL DISTRIBUTION WIDTH 13.4 % (11.7-14.4)
[2020-07-25 06:35] LABS: CREATINE KINASE 80 IU/L (29-168)
[2020-07-25 07:13] LABS: ALANINE AMINOTRANSFERASE 27 IU/L (0-55); ALBUMIN 2.8 g/dL (3.5-5.0); ALKALINE PHOSPHATASE 157 IU/L (40-150); ANION GAP 17.2 mmol/L (8-16); BLOOD UREA NITROGEN 6 mg/dL (7-26); BUN/CREATININE RATIO 10 (6-25); CALCIUM 8.3 mg/dL (8.4-10.2); CARBON DIOXIDE 22 mmol/L (22-29); CHLORIDE 104 mmol/L (98-107); EST GLOMERULAR FILTRATION RATE > 60 ML/MIN (60-); GLUCOSE 81 mg/dL (74-118); POTASSIUM 3.2 mmol/L (3.5-5.1); SODIUM 140 mmol/L (136-145)
[2020-07-25] MEDS ORDERED: MORPHINE SULFATE 2 MG/ML SYR 1ML IV PRN (09:45)
[2020-07-25] MEDS: ASCORBIC ACID 500 MG TAB PO SCH (12:15)
[2020-07-25] MEDS ORDERED: ACETAMINOPHEN 325 MG TAB PO PRN (12:15)
[2020-07-25] MEDS: ZINC SULFATE 220 MG CAP PO SCH (12:15)
[2020-07-25] MEDS ORDERED: MORPHINE SULFATE INJ 4 MG/ML INJ 1ML IV PRN (12:30)
[2020-07-25] MEDS: CEFTRIAXONE SOD 2 GM/NS 100 ML 100 ML IV SCH (13:25)
[2020-07-25] MEDS: AZITHROMYCIN 500MG/NS 250 ML 250 ML IV SCH (13:25)
[2020-07-25] MEDS: DEXAMETHASONE SOD PHOS INJ 4 MG/ML VIAL IV SCH (13:25)
[2020-07-25 15:46] LABS: CREATINE KINASE 54 IU/L (29-168)
[2020-07-25 16:36] LABS: CREATINE KINASE MB < 1.00 ng/mL (0-4.3)
[2020-07-25] MEDS: ENOXAPARIN SOD INJ 40 MG/0.4 ML SYR SC SCH (16:44)
[2020-07-25] MEDS ORDERED: HYDRALAZINE HCL 20 MG/ML VIAL IV PRN (21:45)
[2020-07-25] MEDS ORDERED: TEMAZEPAM 7.5 MG CAP PO PRN (21:45)
[2020-07-25] MEDS ORDERED: POTASSIUM CHLORIDE 20 MEQ TAB CR PO STA (21:55)
[2020-07-26] VITALS (7 sets, daily range): BP systolic 102–118; BP diastolic 51–63
[2020-07-26] MEDS: ONDANSETRON HCL INJ 2MG/ML 2ML 2 MG/ML VIAL IV PRN ×2 (05:19→09:10)
[2020-07-26 05:27] LABS: BASOPHILS % 0.2 % (0.0-1.0); HEMATOCRIT 32.9 % (34.2-44.1); HEMOGLOBIN 11.2 g/dL (12.0-16.0); LYMPHOCYTES # (AUTO) 1.3 (1.0-3.2); MEAN CORPUSCULAR VOLUME 91.1 fL (81-99); MONOCYTES # (AUTO) 0.5 (0.2-0.8); MONOCYTES % 10.4 % (4.4-11.3); NEUTROPHILS % 61.8 % (38.7-80.0); PLATELET COUNT 168 x10e3/uL (140-360); RED BLOOD COUNT 3.61 x10e6/uL (3.6-5.1); RED CELL DISTRIBUTION WIDTH 13.3 % (11.7-14.4)
[2020-07-26] MEDS: ACETAMINOPHEN 325 MG TAB PO PRN (05:30)
[2020-07-26 05:51] LABS: ALANINE AMINOTRANSFERASE 29 IU/L (0-55); ALBUMIN 2.8 g/dL (3.5-5.0); ALBUMIN/GLOBULIN RATIO 0.9 (0.8-2.0); ALKALINE PHOSPHATASE 158 IU/L (40-150); ANION GAP 20.2 mmol/L (8-16); BLOOD UREA NITROGEN 7 mg/dL (7-26); BUN/CREATININE RATIO 11 (6-25); CALCIUM 8.9 mg/dL (8.4-10.2); CARBON DIOXIDE 18 mmol/L (22-29); CHLORIDE 106 mmol/L (98-107); CREATININE, SERUM 0.63 mg/dL (0.57-1.11); EST GLOMERULAR FILTRATION RATE > 60 ML/MIN (60-); GLUCOSE 93 mg/dL (74-118); POTASSIUM 4.2 mmol/L (3.5-5.1); SODIUM 140 mmol/L (136-145)
[2020-07-26 06:09] LABS: CHOL/HDL RATIO 4.9 (3.0-3.6); MAGNESIUM 1.8 MG/DL (1.3-2.1); PHOSPHORUS 2.5 MG/DL (2.3-4.7)
[2020-07-26 06:26] LABS: THYROID STIMULATING HORMONE 0.273 uIU/mL (0.350-4.940)
[2020-07-26] MEDS ORDERED: TEMAZEPAM 15 MG CAP PO PRN (06:45)
[2020-07-26] MEDS: FAMOTIDINE 20 MG/2 ML VIAL IV SCH ×2 (08:57→17:19)
[2020-07-26] MEDS: DEXAMETHASONE SOD PHOS INJ 4 MG/ML VIAL IV SCH (08:57)
[2020-07-26] MEDS ORDERED: DEXAMETHASONE SOD PHOS 10 MG/1 ML VIAL IV SCH (09:00)
[2020-07-26] MEDS: CHOLESTYRAMINE 4 GM PACKET PO SCH ×2 (09:00→17:00)
[2020-07-26] MEDS ORDERED: NON-FORMULARY MEDICATION (Cyclosporine (Restasis) 1 DROP) OP SCH (09:00)
[2020-07-26] MEDS ORDERED: DEXAMETHASONE SOD PHOS INJ 4 MG/ML VIAL IV SCH (09:00)
[2020-07-26] MEDS ORDERED: VENETOCLAX 400 MG PO SCH (09:00)
[2020-07-26] MEDS: ZINC SULFATE 220 MG CAP PO SCH (09:00)
[2020-07-26] MEDS ORDERED: METOPROLOL TARTRATE 25 MG TAB PO SCH (09:00)
[2020-07-26] MEDS: ASCORBIC ACID 500 MG TAB PO SCH (09:00)
[2020-07-26] MEDS: ACETAMINOPHEN 325 MG SUPP PR PRN ×2 (09:09→10:19)
[2020-07-26] MEDS ORDERED: ONDANSETRON HCL INJ 2MG/ML 2ML 2 MG/ML VIAL IV PRN (09:15)
[2020-07-26] MEDS ORDERED: SODIUM CHLORIDE 0.45% 1,000 ML IV ONE (09:45)
[2020-07-26] MEDS: CEFTRIAXONE SOD 2 GM/NS 100 ML 100 ML IV SCH (11:24)
[2020-07-26] MEDS: AZITHROMYCIN 500MG/NS 250 ML 250 ML IV SCH (12:33)
[2020-07-26] MEDS: ACETAMINOPHEN 650 MG SUPP PR PRN (14:32)
[2020-07-26] MEDS ORDERED: MORPHINE SULFATE INJ 4 MG/ML INJ 1ML IV ONE (15:15)
[2020-07-26] MEDS: ENOXAPARIN SOD INJ 40 MG/0.4 ML SYR SC SCH (17:19)
[2020-07-26] MEDS ORDERED: MORPHINE SULFATE 2 MG/ML SYR 1ML IV ONE (21:00)
[2020-07-26] MEDS ORDERED: MORPHINE SULFATE 2 MG/ML SYR 1ML ONE (21:11)
[2020-07-27] VITALS: BP 123/65
[2020-07-27] MEDS: ACETAMINOPHEN 650 MG SUPP PR PRN ×2 (01:58→07:38)
[2020-07-27 04:00] VITALS: BP 116/54
[2020-07-27 04:45] LABS: HEMATOCRIT 30.9 % (34.2-44.1); HEMOGLOBIN 10.6 g/dL (12.0-16.0); LYMPHOCYTES # (AUTO) 0.3 (1.0-3.2); LYMPHOCYTES % 7.9 % (18.0-39.1); MEAN CORPUSCULAR HEMOGLOBIN 30.5 pg (28-32); MEAN CORPUSCULAR HGB CONC 34.3 g/dL (31-35); MEAN CORPUSCULAR VOLUME 88.8 fL (81-99); MONOCYTES # (AUTO) 0.4 (0.2-0.8); MONOCYTES % 9.1 % (4.4-11.3); NEUTROPHILS # (AUTO) 3.5 (2.1-6.9); NEUTROPHILS % 82.1 % (38.7-80.0); PLATELET COUNT 191 x10e3/uL (140-360); RED BLOOD COUNT 3.48 x10e6/uL (3.6-5.1); RED CELL DISTRIBUTION WIDTH 13.1 % (11.7-14.4)
[2020-07-27 05:08] LABS: ALANINE AMINOTRANSFERASE 39 IU/L (0-55); ALBUMIN 2.6 g/dL (3.5-5.0); ALBUMIN/GLOBULIN RATIO 0.9 (0.8-2.0); ALKALINE PHOSPHATASE 140 IU/L (40-150); ANION GAP 16.3 mmol/L (8-16); BLOOD UREA NITROGEN 10 mg/dL (7-26); BUN/CREATININE RATIO 18 (6-25); CALCIUM 8.8 mg/dL (8.4-10.2); CARBON DIOXIDE 20 mmol/L (22-29); CHLORIDE 105 mmol/L (98-107); CREATININE, SERUM 0.57 mg/dL (0.57-1.11); EST GLOMERULAR FILTRATION RATE > 60 ML/MIN (60-); GLUCOSE 115 mg/dL (74-118); POTASSIUM 3.3 mmol/L (3.5-5.1); SODIUM 138 mmol/L (136-145)
[2020-07-27] MEDS ORDERED: DECADRON6 MG PO (06:55)
[2020-07-27] MEDS ORDERED: PROVENTIL HFA6.7 GM INH (06:55)
[2020-07-27] MEDS ORDERED: ZOFRAN ODT PO (06:55)
[2020-07-27] MEDS ORDERED: ZITHROMAX500 MG PO (06:55)
[2020-07-27] MEDS ORDERED: ELIQUIS2.5 MG PO (06:55)
[2020-07-27] MEDS ORDERED: TYLENOL325 M2 PO (06:55)
[2020-07-27] MEDS ORDERED: CEFTIN PO (06:55)
[2020-07-27 07:30] VITALS: BP 129/63
[2020-07-27] MEDS ORDERED: POTASSIUM CHLORIDE 20 MEQ TAB CR PO ONE (07:30)
[2020-07-27] MEDS ORDERED: POTASSIUM CHLORIDE 20MEQ/15ML UDC PO ONE (08:30)
[2020-07-27 09:22] VITALS: BP 129/63
== END 2020-07-27 10:15 | disposition home or self-care (01) | DRG 177 ==
LOC: ER 17:46 → ERHOLD 21:31 → IMCU 22:32
PROVIDERS: ADMIT Internal Medicine; ATTEND Internal Medicine
DX: U07.1 COVID-19 (principal); J12.89 Other viral pneumonia; J96.01 Acute respiratory failure with hypoxia; J15.9 Unspecified bacterial pneumonia; C91.10 Chronic lymphocytic leukemia of B-cell type not having achieved remission; D61.818 Other pancytopenia; E87.6 Hypokalemia; K76.0 Fatty (change of) liver, not elsewhere classified; E04.2 Nontoxic multinodular goiter; Z82.3 Family history of stroke; Z82.61 Family history of arthritis; Z82.49 Family history of ischemic heart disease and other diseases of the circulatory system; Z84.89 Family history of other specified conditions; D64.9 Anemia, unspecified
CPT/HCPCS: 36415; 71045; 71260; 74177; 80053; 80061; 82550; 82553; 83036; 83605; 83735; 84100; 84443; 84484; 85025; 87040; 97139; 99284; J0456; J0696; J1100; J1650; J2270; J2405; J2543; J7030; Q9967; U0002